=== PATIENT | female | born 1990 | race Two or more races ===

== ENCOUNTER 2018-06-20 07:05 | Emergency (ER) | payer MEDICAID ==
[~2018-06-20] VITALS: Ht 167.6 cm; Wt 45.4 kg
--- NOTE | 2018-06-20 07:18 | NUR ---
ED Nurse Note: pt was brought in from [facility] for OD, pt was found at [employer]. [facility] gagve pt 2 mg Narcan. pt is restless and constantly moving around. pt HR is 133 and BP is 131/71, 92% O2 room air.. will await further orders from ERMD.
[2018-06-20 07:21] VITALS: BP 131/71
--- NOTE | 2018-06-20 07:21 | NUR ---
ED Nurse Note: sitter is at bedside.
[2018-06-20] MEDS ORDERED: LORazepam Inj 2mg/ml 1ml IV ONE (08:00)
--- NOTE | 2018-06-20 08:01 | NUR ---
ED Nurse Note: message left to social insurance adviser.
--- NOTE | 2018-06-20 08:04 | NUR ---
ED Nurse Note: per TED ativan being hold.
--- NOTE | 2018-06-20 08:11 | Emergency Room Report ---
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 [place] we are attempting other Contacts and social work has also been consulted Allergies: Coded Allergies: No Known Allergies (Unverified , 06/20/18) Patient History Limited by: medical condition Past Medical History: see triage record Pertinent Family History: unable to obtain Last Menstrual Period: unknown Reviewed Nursing Documentation: PMH: Agreed; PSxH: Agreed Nursing Documentation-PMH Past Medical History: No Stated History Review of Systems All Other Systems: limited - Other than the ones mentioned in the history of present illness all others are reviewed however they do stay limited due to the patient's mental status Physical Exam Vital Signs Date Time Temp Pulse Resp B/P (MAP) Pulse Ox O2 Delivery O2 Flow Rate FiO2 06/20/18 07:01 97.0 100 34 100 Room Air 06/20/18 07:21 131/71 Sp02 EP Interpretation: reviewed, normal General Appearance: mild distress - Agitated Head: normocephalic, atraumatic Eyes: bilateral eye PERRL, bilateral eye EOMI ENT: normal pharynx Neck: supple Respiratory: lungs clear, no retraction, no accessory muscle use Cardiovascular #1: regular rate, rhythm Gastrointestinal: non tender, soft Musculoskeletal: other - Does not follow commands however no obvious focal deficit Neurologic: responsive - To verbal and physical stimuli Skin: normal color, no rash Lymphatic: no adenopathy Medical Decision Making Diagnostic Impression: Primary Impression: Drug overdose ER Course Patient is complex with multiple differentials and consideration placed on a cardiac surgeon Patient's boyfriend is also here Patient remains easily arousable has not required any further medications Patient now reports that she had taken GHB along with a Valium, she reports that she does have problems with medications Social work consultation has been made Please refer to her note for full specifics however they have provided the patient with appropriate follow-up patient does not have any suicidal or homicidal thoughts Is in decision-making capacity And is being dispositioned to a friend's care for further outpatient follow-up Rhythm Strip Diag. Results EP Interpretation: yes Rate: 80 Rhythm: NSR, no PVC's, no ectopy Last Vital Signs Date Time Temp Pulse Resp B/P (MAP) Pulse Ox O2 Delivery O2 Flow Rate FiO2 06/20/18 07:21 97.0 133 24 131/71 100 Room Air Status: improved Disposition: HOME, SELF-CARE Condition: Improved Scripts Naloxone HCl (Narcan) 4 Mg [place] 4 MG NS PRN, #2 SPRAY Prov: Denice Mcnair DO 06/20/18 Referrals: NON PHYSICIAN (PCP) Additional Instructions: Patient is provided with the discharge instructions notified to follow up with primary doctor in the next 2-3 days otherwise return to the er with any worsening symptoms. Please note that this report is being documented using [employer] technology. This can lead to erroneous entry secondary to incorrect interpretation by the dictating instrument. Denice Mcnair DO Jun 20, 2018 08:11
--- NOTE | 2018-06-20 08:39 | NUR ---
ED Nurse Note: per pt she took valium and GHB- (gamma hydroxybutyric) PO.
--- NOTE | 2018-06-20 08:40 | NUR ---
ED Nurse Note: per pt her tyra is AMOS phone number [phone] Addendum: 06/20/18 at 0846 by PDELEON ED Nurse Note: Amos is pt margaret.
--- NOTE | 2018-06-20 08:47 | NUR ---
ED Nurse Note: Jose nancyfrbrenda - [phone]
[2018-06-20 09:20] VITALS: BP 119/83
--- NOTE | 2018-06-20 10:00 | NUR ---
ED Nurse Note: boyfriend at bedside, ERMD notified.
[2018-06-20] MEDS ORDERED: NARCAN4 MG NS (10:18)
--- NOTE | 2018-06-20 10:19 | NUR ---
Social Work This SW received a consult due to substance abuse. This SW met with patient who admitted to Cocaine abuse, along with "GHB." Patient also explained she has been having depression, denied sucidial ideations and wanting follow up referrals to walk in mental health clinics. Patient lives with boyfriend, Criss and explained she will discharge to home with him from this ED (denied any domestic violence). Patient admitted she may be evicted from her apartment and planning to move in with her parents. This SW provided emotional support/brief counseling, along with substance abuse and mental health resources. No other needs/concerns present at this time.
[2018-06-20 10:22] VITALS: BP 118/85
--- NOTE | 2018-06-20 10:22 | NUR ---
ED Nurse Note: pt was d/c per ermd, discharge instructions and prescription explained and pt is aox 4. pt and boyfriend able to verbalize understanding. id band removed. IV site discontinued without complications. pt able to walk with steady gait. pt left the ed with all belongings.
== END 2018-06-20 10:22 | disposition home or self-care (01) ==
LOC: EDBD 07:05 → EMR 07:40
DX: T40.1X1A Poisoning by heroin, accidental (unintentional), initial encounter (principal); Y92.9 Unspecified place or not applicable
CPT/HCPCS: 96360; 99284